=== PATIENT | male | born 1935 | race Caucasian/White ===

== ENCOUNTER 2020-10-25 09:35 | Inpatient (IN) | payer MEDICAID, SELFPAY ==
[2020-10-25] VITALS (9 sets, daily range): BP systolic 136–166; BP diastolic 58–80; PULSE 56–73; RESP 16–18; TEMP 36.5–37.1; O2SAT 92–96; BMI 22.7
--- NOTE | ~2020-10-25 | FL_ITS ---
EXAMINATION: XR FLUOROSCOPY WITH IMAGES CLINICAL INFORMATION: Hip fracture, left. COMPARISON: None. TECHNIQUE: Fluoroscopy performed by Dr. Timothy Bryant. Fluoroscopy time: 1.1 minutes DAP: 0.573 mGycm2 Images: 5 FINDINGS: Images demonstrate placement of an intramedullary adis and screw in the left hip. Please see operative report for details. FL/FL guidance in OR IMPRESSION: Fluoroscopy and spot films provided during left hip pin placement.
--- NOTE | ~2020-10-25 | XR_ITS ---
EXAMINATION: AP CHEST AND PELVIS WITH LEFT HIP CLINICAL INFORMATION: Fall COMPARISON: June 17, 2017 TECHNIQUE: AP supine film of the chest and AP pelvis and 2 views of the left hip FINDINGS: AP film of the chest does not demonstrate any evidence of acute parenchymal disease, pneumothorax, or pleural effusion. There are small lung volumes. Old healed left rib fractures present. Heart normal size. No evidence of pulmonary edema. AP film of the pelvis demonstrates patient be status post previous intramedullary adis and compression screw fixation for previous right hip fracture. There is now noted to be an intertrochanteric fracture of the proximal left femur with some medial angulation of the distal fracture fragment. No dislocation is evident. No acute fracture or diastases of the pelvis is appreciated. There is degenerative disc disease and facet arthropathy seen L4-S1. XR/XR hip LT w PEL1V IMPRESSION: No acute parenchymal disease within the chest. Intratrochanteric fracture of the proximal left femur with mild medial angulation distal fracture fragment.
--- NOTE | ~2020-10-25 | CT_ITS ---
EXAMINATION: CT HEAD/BRAIN WITHOUT CONTRAST CLINICAL INFORMATION: Fall COMPARISON: July 08, 2011 and August 18, 2012 TECHNIQUE: CT scanning from base of skull to vertex performed without IV contrast administration. This CT examination was performed using dose optimization techniques as appropriate, variously including the following: *Automated exposure control *Adjustment of mA and/or kV according to patient size (this includes techniques or standardized protocols for targeted exams where dose is matched to indication/reason for exam; i.e. extremities or head) *Use of iterative reconstruction technique DLP: 557.32 mGy-cm. FINDINGS: The ventricles, sulci, and cisterns appear prominent consistent with some degree of generalized atrophy.. No abnormal extra-axial fluid collection or intracranial hemorrhage is seen. No significant mass effect or midline structure shift is evident. 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 There is a mucous retention cyst seen within the left sphenoid sinus. Previous nasal bone fracture evident. There are prominent vascular calcifications seen involving the vertebral arteries and carotid arteries. CT/CT cervical spine wo con IMPRESSION: No acute intracranial abnormality appreciated. Generalized atrophy. 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 EXAMINATION: CT OF THE CERVICAL SPINE CLINICAL INFORMATION: Fall COMPARISON: None. TECHNIQUE: Thin helical images with sagittal and coronal reformats. This CT examination was performed using dose optimization techniques as appropriate, variously including the following: *Automated exposure control *Adjustment of mA and/or kV according to patient size (this includes techniques or standardized protocols for targeted exams where dose is matched to indication/reason for exam; i.e. extremities or head) *Use of iterative reconstruction technique DOSE: DLP 567 mGy-cm FINDINGS: There is motion artifact present on 2 separate series performed. No definite acute fracture is appreciated. No abnormal prevertebral soft tissue swelling is seen. Paraspinal muscle fat planes are maintained. There is degenerative disc space narrowing and marginal spurring seen C4-C7. IMPRESSION: No acute cervical spine fracture identified. Degenerative disc disease.
--- NOTE | ~2020-10-25 | XR_ITS ---
EXAMINATION: AP CHEST AND PELVIS WITH LEFT HIP CLINICAL INFORMATION: Fall COMPARISON: June 17, 2017 TECHNIQUE: AP supine film of the chest and AP pelvis and 2 views of the left hip FINDINGS: AP film of the chest does not demonstrate any evidence of acute parenchymal disease, pneumothorax, or pleural effusion. There are small lung volumes. Old healed left rib fractures present. Heart normal size. No evidence of pulmonary edema. AP film of the pelvis demonstrates patient be status post previous intramedullary adis and compression screw fixation for previous right hip fracture. There is now noted to be an intertrochanteric fracture of the proximal left femur with some medial angulation of the distal fracture fragment. No dislocation is evident. No acute fracture or diastases of the pelvis is appreciated. There is degenerative disc disease and facet arthropathy seen L4-S1. XR/XR chest 1V IMPRESSION: No acute parenchymal disease within the chest. Intratrochanteric fracture of the proximal left femur with mild medial angulation distal fracture fragment.
--- NOTE | 2020-10-25 09:43 | ECG_ITS ---
Test Reason : FALL Blood Pressure : / mmHG Vent. Rate : 063 BPM Atrial Rate : 063 BPM P-R Int : 200 ms QRS Dur : 098 ms QT Int : 410 ms P-R-T Axes : 063 037 085 degrees QTc Int : 419 ms Normal sinus rhythm Normal ECG When compared with ECG of 17-JUN-2017 11:34, Vent. rate has decreased BY 38 BPM Referred By: Jany Guevara Electronically Signed By:KENROY MORENO MD
--- NOTE | 2020-10-25 09:44 | ED.FALL ---
HPI - Fall General Chief Complaint: Extremity Injury, Lower Stated Complaint: FALL LEFT HIP PAIN Time Seen by Provider: 10/25/20 09:43 Source: patient and EMS Mode of arrival: EMS Limitations: altered mental status History of Present Illness complaint: fall Onset (ago): day(s) (last night) Fall from: standing Fall witnessed: no Place fall occurred: [facility] Loss of consciousness: none Prolonged down time: no Symptoms prior to fall: none Context: other (unknown) Location of injury: pelvis (L hip) Severity: moderate Quality: throbbing Associated symptoms (after fall): denies Related Data Home Medications Medication Instructions Recorded Confirmed acetaminophen [Tylenol] 650 mg PO Q4H PRN 10/25/20 10/25/20 ferrous sulfate 325 mg PO DAILY 10/25/20 10/25/20 insulin aspart U-100 [Novolog 6 unit SUBCUT BIDAC 10/25/20 10/25/20 U-100 Insulin aspart] insulin aspart U-100 [Novolog 12 unit SUBCUT DAILY PRN 10/25/20 10/25/20 U-100 Insulin aspart] insulin glargine [Lantus U-100 24 unit SUBCUT BEDTIME 10/25/20 10/25/20 Insulin] atdwxtei-oyp-xycsnbs sulfate 1 tab PO DAILY 10/25/20 10/25/20 [Multilex] nystatin 1 appl TOPICAL BID 10/25/20 10/25/20 sertraline 25 mg PO DAILY 10/25/20 10/25/20 Allergies Allergy/AdvReac Type Severity Reaction Status Date / Time No Known Allergies Allergy Unverified 12/23/19 15:10 Review of Systems Review of Systems: ROS unable to be obtained due to cognitive impairment [facility] Past Medical History Attestation statement: The following information was validated with the patient. Medical History Anemia Dementia Depression Diabetes Falls HTN (hypertension) Social History Social History Housing: [facility] Patient Tobacco Use Status: Tobacco use Unknown Use of substances other than those prescribed or required for medical reasons: Unknown Advance Directives: No Advance Directives Information Provided: Yes Physical Exam Vital Signs: Vital Signs: Last Vital Signs Temp 97.9 F 10/25/20 14:32 Pulse 57 10/25/20 14:32 Resp 16 10/25/20 14:32 BP 151/60 H 10/25/20 14:32 Pulse Ox 93 10/25/20 14:32 Body Mass Index 22.7 Appearance: Alert. Oriented X2. No acute distress. Eyes: Pupils equal, round and reactive to light. ENT: Pharynx normal. Neck: Normal inspection. Neck supple. CVS: Normal heart rate and rhythm. Pulses normal. Respiratory: No respiratory distress. Breath sounds normal. Abdomen: Soft and nontender. Skin: Skin warm and dry. Normal skin color. Normal skin turgor. Extremities: No lower extremity edema. L leg shortened and ext rotated, distal NV intact, swelling to upper thigh but compartments are soft and compressibe Neuro: Oriented X 2. No motor deficit. No sensory deficit. Course Course Course Narrative: I cannot reach any family member who is DNR?DNI/ do not transport and he has severe dementia and I don't believe he can consent to surgery - staff note he ambulates at bedside, SW involved at this time family member at bedside medicine to admit, orthopedics notified 1153am MDM - Fall MDM Narrative Medical decision making narrative: 84 yo male unwitnessed fall yesterday - L hip shortened and externally rotated, no other trauma given dementia and age will need labs, CT head/cspine to r/o trauma, EKG, IV morphine for pain, anticipate fracture. Lab Data Result diagrams: 10/25/20 09:55 10/25/20 09:55 Labs: Lab Results 10/25/20 10/25/20 10/25/20 Range/Units 09:55 09:55 09:55 WBC 10.0 (4.8-10.8) X10*3/uL RBC 3.21 L (4.60-5.80) X10*6/uL Hgb 9.5 L (14.0-18.0) g/dl Hct 29.8 L (42-52) % MCV 92.8 (80-98) fL MCH 29.6 (27.0-33.0) pg MCHC 31.9 (31.0-36.0) g/dl RDW 12.5 (11.0-16.0) % Plt Count 174 (160-400) X10*3/uL MPV 9.3 L (9.4-12.4) fL Immature Gran % (Auto) 0.6 H (0.0-0.4) % Neut % (Auto) 76.9 H (45-73) % Lymph % (Auto) 12.3 L (20-40) % Stephens % (Auto) 6.9 (2-11) % Eos % (Auto) 3.1 (0-4) % Baso % (Auto) 0.2 (0-2) % Lymph # (Auto) 1.2 (1.2-4.9) X10*3/uL Stephens # (Auto) 0.7 (0.1-1.2) X10*3/uL Eos # (Auto) 0.3 (0.0-0.4) X10*3/uL Baso # (Auto) 0.0 (0.0-0.2) X10*3/uL Abs Immat Gran (auto) 0.06 H (0.00-0.03) X10*3/uL Absolute Neuts (auto) 7.7 (2.0-8.3) X10*3/uL Absolute Nucleated RBC 0.000 (0.0-0.012) X10*3/uL Nucleated RBC % (auto) 0.0 (0.0-0.2) /100WBC Sodium 137 (135-145) mmol/L Potassium 5.0 (3.3-5.1) mmol/L Chloride 108 (96-108) mmol/L Carbon Dioxide 23 (22-29) mmol/L Anion Gap 11 L (12-20) BUN 62 H (9-16) mg/dL Creatinine 1.65 H (0.5-1.4) mg/dL Estim Creat Clear Calc 34.8 Estimated GFR 40 Random Glucose 326 H (60-115) mg/dL Calcium 8.3 L (8.4-10.2) mg/dL Magnesium 2.1 (1.6-2.6) mg/dL Total Bilirubin 0.3 (0.0-1.0) mg/dL Direct Bilirubin < 0.2 (0.0-0.5) mg/dL AST 13 (5-37) U/L ALT 15 (0-40) U/L Alkaline Phosphatase 95 (39-117) U/L Troponin I High Sens (<3.5-35.0) ng/L Total Protein 7.2 (6.5-8.0) g/dL Albumin 3.4 L (3.5-5.0) g/dL Lipase 9 (8-78) U/L COVID-19 (MACI) Negative (Negative) COVID-19 Clin Com See Note Blood Type Antibody Screen 10/25/20 10/25/20 Range/Units 09:55 11:41 WBC (4.8-10.8) X10*3/uL RBC (4.60-5.80) X10*6/uL Hgb (14.0-18.0) g/dl Hct (42-52) % MCV (80-98) fL MCH (27.0-33.0) pg MCHC (31.0-36.0) g/dl RDW (11.0-16.0) % Plt Count (160-400) X10*3/uL MPV (9.4-12.4) fL Immature Gran % (Auto) (0.0-0.4) % Neut % (Auto) (45-73) % Lymph % (Auto) (20-40) % Stephens % (Auto) (2-11) % Eos % (Auto) (0-4) % Baso % (Auto) (0-2) % Lymph # (Auto) (1.2-4.9) X10*3/uL Stephens # (Auto) (0.1-1.2) X10*3/uL Eos # (Auto) (0.0-0.4) X10*3/uL Baso # (Auto) (0.0-0.2) X10*3/uL Abs Immat Gran (auto) (0.00-0.03) X10*3/uL Absolute Neuts (auto) (2.0-8.3) X10*3/uL Absolute Nucleated RBC (0.0-0.012) X10*3/uL Nucleated RBC % (auto) (0.0-0.2) /100WBC Sodium (135-145) mmol/L Potassium (3.3-5.1) mmol/L Chloride (96-108) mmol/L Carbon Dioxide (22-29) mmol/L Anion Gap (12-20) BUN (9-16) mg/dL Creatinine (0.5-1.4) mg/dL Estim Creat Clear Calc Estimated GFR Random Glucose (60-115) mg/dL Calcium (8.4-10.2) mg/dL Magnesium (1.6-2.6) mg/dL Total Bilirubin (0.0-1.0) mg/dL Direct Bilirubin (0.0-0.5) mg/dL AST (5-37) U/L ALT (0-40) U/L Alkaline Phosphatase (39-117) U/L Troponin I High Sens 8.0 (<3.5-35.0) ng/L Total Protein (6.5-8.0) g/dL Albumin (3.5-5.0) g/dL Lipase (8-78) U/L COVID-19 (MACI) (Negative) COVID-19 Clin Com Blood Type O Positive Antibody Screen NEGATIVE ECG Data Attestation: I personally reviewed and interpreted this ECG as follows: ECG interpretation date: 10/25/20 ECG interpretation time: 09:56 Interpretation: Rate: 63 Rhythm: NSR Winters: normal Normal P waves. Normal DENILSON. Normal QRS complex. ST T wave : inverted aVL, no PREM qTC: normal prior studies: no acute ischemia The study has been interpreted contemporaneously by me. . Discharge Plan Discharge Clinical Impression: Fracture of femur Qualifiers: Encounter type: initial encounter Femur location: intertrochanteric Fracture type: closed Fracture alignment: displaced Laterality: left Qualified Code(s): S72.142A - Displaced intertrochanteric fracture of left femur, initial encounter for closed fracture Patient Disposition: Admitted As Inpatient
[2020-10-25] MEDS: ondansetron HCL 4 MG/2 ML VIAL IVPUSH (09:54)
[2020-10-25] MEDS: Morphine Sulfate 4 MG/ML CARTRIDGE 2 MG IVPUSH (09:54)
[2020-10-25 10:00] LABS: MANUAL DIFF FLAG NO
[2020-10-25 10:01] LABS: Basophils Percent Auto 0.2 % (0-2); Eosinophils Absolute Auto 0.3 X10*3/uL (0.0-0.4); Eosinophils Percent Auto 3.1 % (0-4); Hematocrit 29.8 % (42-52); Hemoglobin 9.5 g/dl (14.0-18.0); Imm Gran Abs Auto 0.06 X10*3/uL (0.00-0.03); Imm Gran Pct Auto 0.6 % (0.0-0.4); Lymphocytes Absolute Auto 1.2 X10*3/uL (1.2-4.9); Lymphocytes Percent Auto 12.3 % (20-40); Mean Corpuscular HGB Conc 31.9 g/dl (31.0-36.0); Mean Corpuscular Hemoglobin 29.6 pg (27.0-33.0); Mean Corpuscular Volume 92.8 fL (80-98); Mean Platelet Volume 9.3 fL (9.4-12.4); Monocytes Absolute Auto 0.7 X10*3/uL (0.1-1.2); Monocytes Percent Auto 6.9 % (2-11); Neutrophils Absolute Auto 7.7 X10*3/uL (2.0-8.3); Neutrophils Percent Auto 76.9 % (45-73); Platelet Count 174 X10*3/uL (160-400); Red Blood Count 3.21 X10*6/uL (4.60-5.80); Red Cell Distribution Width 12.5 % (11.0-16.0)
[2020-10-25 10:19] LABS: COVID-19 Test Negative (Negative); IDNOW Serial# 9DD0AD1C
--- NOTE | 2020-10-25 10:22 | PHA.MEDREC ---
Pharmacy Consult ? Medication Reconciliation Pharmacy has completed the medication reconciliation.
[2020-10-25 10:33] LABS: Alanine Aminotransferase 15 U/L (0-40); Albumin Level 3.4 g/dL (3.5-5.0); Alkaline Phosphatase 95 U/L (39-117); Anion Gap 11 (12-20); Aspartate Amino Transferase 13 U/L (5-37); Bilirubin Direct < 0.2 mg/dL (0.0-0.5); Bilirubin Total 0.3 mg/dL (0.0-1.0); Blood Urea Nitrogen 62 mg/dL (9-16); Calcium 8.3 mg/dL (8.4-10.2); Carbon Dioxide 23 mmol/L (22-29); Chloride 108 mmol/L (96-108); Creatinine Clr Calc Pharmacy 34.8; Estimated Glomerular Filt Rate 40; Glucose Random 326 mg/dL (60-115); Lipase 9 U/L (8-78); Magnesium 2.1 mg/dL (1.6-2.6); Sodium 137 mmol/L (135-145); Total Protein 7.2 g/dL (6.5-8.0)
--- NOTE | 2020-10-25 11:04 | PC.NURSE ---
received report from lindsey cervantes
--- NOTE | 2020-10-25 11:29 | PC.NURSE ---
pt is resting in the stretcher alert but confused at baseline so unable to get clear answer if pt is having any pain at this time, pt does wince if he is moved or the left leg moved. left leg rated inn, vs stable at this time
--- NOTE | 2020-10-25 11:44 | PC.NURSE ---
CALLED [facility] AND SPOKE TO ZAIDA RN IN REGARDS TO THE PT'S CONTACTS, PT'S SISTER HAS AND THE NEPHEW PIOTR TURNED HIS CELL PHONE OFF BECAUSE HE WOULD LIKE TO BE OFF THE GRID, [place] ADDRESS IS [address] [place] [address]. ACCORDING TO ZAIDA THEY WILL SEND THERE CASE MANAGEMENT TO [facility] [place] TO ASK HIM TO COME TO THE [place] ED. ZAIDA STATES THAT [facility] IS HIS OWN HEALTH CARE PROXY, PT DOES HAVE SOME CONFUSION AT BASELINE. DR SPRINGER AWARE OF THIS PHONE CALL
--- NOTE | 2020-10-25 14:19 | P.HPOP_ITS ---
History of Present Illness History of Present Illness Date of Service: 10/25/20 Chief complaint: FALL LEFT HIP PAIN Narrative: Abdi Jose is a 84 year old male who presents to the ED today for evaluation of left hip pain after sustaining an unwitnessed fall two days ago. After the fall the patient reports that he was unable to ambulate after the fall. He is a poor historian and is a resident at [facility] in [place]. His health care proxy and nephew Miles accompanies the patient at bedside but is unable to provide additional information about the patients health history or de tails surrounding the events of the patient's fall. Review of Systems Review of Systems: Yes all other systems are reviewed and are negative PMFSH Past Medical History Medical History Anemia Dementia Depression Diabetes Falls HTN (hypertension) Social History Social History (Updated 10/25/20 @ 09:54 by Jany Guevara DO) Housing: Care Home Patient Tobacco Use Status: Tobacco use Unknown Use of substances other than those prescribed or required for medical reasons: Unknown Advance Directives: No Advance Directives Information Provided: Yes Meds Allergies Allergy/AdvReac Type Severity Reaction Status Date / Time No Known Allergies Allergy Unverified 12/23/19 15:10 Active Medications: Current Medications Generic Name Dose Route Start Last Admin Trade Name Freq PRN Reason Stop Dose Admin Pharmacy Consult 1 each 10/25/20 09:43 Consult Rx Perform Med Rec MISCELLANE ONCE PRN Consult order Home Medications Medication Instructions Recorded Confirmed Last Taken Type acetaminophen [Tylenol] 650 mg PO Q4H PRN 10/25/20 10/25/20 Unknown History ferrous sulfate 325 mg PO DAILY 10/25/20 10/25/20 Unknown History insulin aspart U-100 [Novolog 6 unit SUBCUT BIDAC 10/25/20 10/25/20 Unknown History U-100 Insulin aspart] insulin aspart U-100 [Novolog 12 unit SUBCUT DAILY PRN 10/25/20 10/25/20 Unknown History U-100 Insulin aspart] insulin glargine [Lantus U-100 24 unit SUBCUT BEDTIME 10/25/20 10/25/20 Unknown History Insulin] oixcarwl-cgg-kjaujwj sulfate 1 tab PO DAILY 10/25/20 10/25/20 Unknown History [Multilex] nystatin 1 appl TOPICAL BID 10/25/20 10/25/20 Unknown History sertraline 25 mg PO DAILY 10/25/20 10/25/20 Unknown History Physical Exam Vital Signs: Vital Signs: Last Vital Signs Temp 98.5 F 10/25/20 12:26 Pulse 56 10/25/20 12:26 Resp 16 10/25/20 12:26 BP 154/68 H 10/25/20 12:26 Pulse Ox 95 10/25/20 12:26 Body Mass Index 22.7 Const: General: cooperative and no acute distress HENMT: Head: Yes normal to inspection, Yes normocephalic and Yes atraumatic Eyes: General: appearance normal, both eyes and all related structures Neck: Neck: Yes normal visual inspection and Yes no lymphadenopathy Resp: Effort & Inspection: normal respiratory effort and able to speak in complete sentences Cardio: Rate: regular rate Peripheral pulses: Peripheral pulses 2+ throughout GI: Inspection: Yes normal to inspection Palpation (GI): Soft to palpation Skin: General skin exam: no rashes or lesions noted Lesions: no lesions Rashes: no rashes Extrem: Other: Left lower extremity is shortened and externally rotated. Skin is intact with no abrasions or lesions. Pain with log roll. Unable to perform a straight leg raise. NVI. Results Labs Result Diagrams: 10/25/20 09:55 10/25/20 09:55 Labs: Abnormal lab results 10/25/20 10/25/20 Range/Units 09:55 09:55 RBC 3.21 L (4.60-5.80) X10*6/uL Hgb 9.5 L (14.0-18.0) g/dl Hct 29.8 L (42-52) % MPV 9.3 L (9.4-12.4) fL Immature Gran % (Auto) 0.6 H (0.0-0.4) % Neut % (Auto) 76.9 H (45-73) % Lymph % (Auto) 12.3 L (20-40) % Abs Immat Gran (auto) 0.06 H (0.00-0.03) X10*3/uL Anion Gap 11 L (12-20) BUN 62 H (9-16) mg/dL Creatinine 1.65 H (0.5-1.4) mg/dL Random Glucose 326 H (60-115) mg/dL Calcium 8.3 L (8.4-10.2) mg/dL Albumin 3.4 L (3.5-5.0) g/dL H & H 10/25/20 Range/Units 09:55 Hgb 9.5 L (14.0-18.0) g/dl Hct 29.8 L (42-52) % All other labs normal. Assessment and Plan (1) Intertrochanteric fracture of left femur: Status: Acute I discussed the case with Dr. Bryant and Dr. Reece and explained the extent of the injury to the patient as well has his HCP/Nephew Miles. We discussed options available which include surgical intervention. I explained the procedure in detail along with the length of recovery and rehab course. I explained the risk, benefits and alternatives. Risk including, but not limited to infection, blood clots, bleeding, non union or malunion and nerve/tissue damage to surrounding areas. I answered all their questions and with their understanding they have consented to move forward with Operative Fixation of the left hip . The patient will be T&S, med clearance obtained and NPO after midnight. Quality Stroke Does the patient have a stroke diagnosis?: No VTE Prior VTE?: No VTE Risk Level:: Surgical - high VTE Device Contraindication: N/A - Device Ordered VTE Drug Contraindication: N/A - Med Ordered Procedures Date of Service Date of Service: 10/25/20
--- NOTE | 2020-10-25 14:43 | PC.NURSE ---
pt resting in the stretcher in no apparent distress at this time, magy the nephew at bedside. pt continuous on awaiting a room assignment
--- NOTE | 2020-10-25 15:17 | PM.IMHP ---
History of Present Illness Date of Service: 10/25/20 Chief Complaint: fall 84M with dementia, poor historia, [place], presented for mechanical fall, found to have left femur fracture. patient does not recall event. does currently have left hip pain, but only on movement, was previously mobile, denies chest pain, sob, fever, chills Review of Systems Review of Systems: Constitutional: Denies fever, denies Chills Eyes: denies blurry vision ENT: denies sore throat CVS: denies chest pain Respiratory: Denies dyspnea GI: no abdominal pain : denies dysuria MSK: denies neck pain Skin: denies rash Neuro: denies specific motor weakness Psych: denies suicidal ideation Endocrine: denies heat/cold intoleratnce Hematologic: denies easy bleeding Allergy: denies hives PMFSH Medical History Anemia Dementia Depression Diabetes Falls HTN (hypertension) Family history: reviewed and not pertinent Social History Housing: Correction Patient Tobacco Use Status: Tobacco use Unknown Use of substances other than those prescribed or required for medical reasons: Unknown Advance Directives: No Advance Directives Information Provided: Yes Meds Allergies Allergy/AdvReac Type Severity Reaction Status Date / Time No Known Allergies Allergy Unverified 12/23/19 15:10 Active Medications: Current Medications Generic Name Dose Route Start Last Admin Trade Name Freq PRN Reason Stop Dose Admin Acetaminophen 650 mg 10/25/20 15:11 Acetaminophen 325 Mg Tablet PO Q4H PRN Pain Insulin Glargine 10 unit 10/25/20 21:00 Insulin Glargine,Hum.Rec.Anlog 100 Unit/Ml 10 Ml Vial SUBCUT BEDTIME [facility] Insulin Human Lispro 0 unit 10/25/20 16:30 Insulin Lispro 100 Unit/Ml 3 Ml Vial SUBCUT QIDACHS [facility] Protocol Pharmacy Consult 1 each 10/25/20 09:43 Consult Rx Perform Med Rec MISCELLANE ONCE PRN Consult order Sertraline HCl 25 mg 10/26/20 09:00 Sertraline Hcl 25 Mg Tablet PO DAILY [facility] Sodium Chloride 3 ml 10/25/20 16:00 0.9 % Sodium Chloride Flush 3 Ml [facility]ringe [facility] Home Medications Medication Instructions Recorded Confirmed Last Taken Type acetaminophen [Tylenol] 650 mg PO Q4H PRN 10/25/20 10/25/20 Unknown History ferrous sulfate 325 mg PO DAILY 10/25/20 10/25/20 Unknown History insulin aspart U-100 [Novolog 6 unit SUBCUT BIDAC 10/25/20 10/25/20 Unknown History U-100 Insulin aspart] insulin aspart U-100 [Novolog 12 unit SUBCUT DAILY PRN 10/25/20 10/25/20 Unknown History U-100 Insulin aspart] insulin glargine [Lantus U-100 24 unit SUBCUT BEDTIME 10/25/20 10/25/20 Unknown History Insulin] zudwimer-tbn-oucctce sulfate 1 tab PO DAILY 10/25/20 10/25/20 Unknown History [Multilex] nystatin 1 appl TOPICAL BID 10/25/20 10/25/20 Unknown History sertraline 25 mg PO DAILY 10/25/20 10/25/20 Unknown History Physical Exam Vital Signs and Narrative: Vital Signs: Last Vital Signs Temp 97.9 F 10/25/20 14:32 Pulse 57 10/25/20 14:32 Resp 16 10/25/20 14:32 BP 151/60 H 10/25/20 14:32 Pulse Ox 93 10/25/20 14:32 Body Mass Index 22.7 General: no acute distress HEENT: atraumatic Neck: normal to visual inspection CVS: S1, S2, RRR Resp: CTA bilateral Chest: non tender GI: soft, non tender, non distended : no CVA tenderness Skin: no rashes Extremities: no edema Neuro: Oriented X1, grossly intact Psych: cooperative Results Labs CBC and Chem 7: 10/25/20 09:55 10/25/20 09:55 Labs: Laboratory Results - last 24 hr 10/25/20 10/25/20 10/25/20 09:55 09:55 09:55 MCV 92.8 MCH 29.6 MCHC 31.9 RDW 12.5 Plt Count 174 MPV 9.3 L Immature Gran % (Auto) 0.6 H Neut % (Auto) 76.9 H Lymph % (Auto) 12.3 L [place] % (Auto) 6.9 Eos % (Auto) 3.1 Baso % (Auto) 0.2 Lymph # (Auto) 1.2 [place] # (Auto) 0.7 Eos # (Auto) 0.3 Baso # (Auto) 0.0 Abs Immat Gran (auto) 0.06 H Absolute Neuts (auto) 7.7 Absolute Nucleated RBC 0.000 Nucleated RBC % (auto) 0.0 Anion Gap 11 L Estim Creat Clear Calc 34.8 Estimated GFR 40 Random Glucose 326 H Calcium 8.3 L Magnesium 2.1 Total Bilirubin 0.3 Direct Bilirubin < 0.2 AST 13 ALT 15 Alkaline Phosphatase 95 Troponin I High Sens Total Protein 7.2 Albumin 3.4 L Lipase 9 COVID-19 (MACI) Negative COVID-19 Clin Com See Note Blood Type Antibody Screen 10/25/20 10/25/20 09:55 11:41 MCV MCH MCHC RDW Plt Count MPV Immature Gran % (Auto) Neut % (Auto) Lymph % (Auto) [place] % (Auto) Eos % (Auto) Baso % (Auto) Lymph # (Auto) [place] # (Auto) Eos # (Auto) Baso # (Auto) Abs Immat Gran (auto) Absolute Neuts (auto) Absolute Nucleated RBC Nucleated RBC % (auto) Anion Gap Estim Creat Clear Calc Estimated GFR Random Glucose Calcium Magnesium Total Bilirubin Direct Bilirubin AST ALT Alkaline Phosphatase Troponin I High Sens 8.0 Total Protein Albumin Lipase COVID-19 (MACI) COVID-19 Clin Com Blood Type O Positive Antibody Screen NEGATIVE Imaging Radiologist's Impressions: Impressions Cervical Spine CT 10/25/20 09:43 IMPRESSION: No acute intracranial abnormality appreciated. Generalized atrophy. 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 EXAMINATION: CT OF THE CERVICAL SPINE CLINICAL INFORMATION: Fall COMPARISON: None. TECHNIQUE: Thin helical images with sagittal and coronal reformats. This CT examination was performed using dose optimization techniques as appropriate, variously including the following: *Automated exposure control *Adjustment of mA and/or kV according to patient size (this includes techniques or standardized protocols for targeted exams where dose is matched to indication/reason for exam; i.e. extremities or head) *Use of iterative reconstruction technique DOSE: DLP 567 mGy-cm FINDINGS: There is motion artifact present on 2 separate series performed. No definite acute fracture is appreciated. No abnormal prevertebral soft tissue swelling is seen. Paraspinal muscle fat planes are maintained. There is degenerative disc space narrowing and marginal spurring seen C4-C7. IMPRESSION: No acute cervical spine fracture identified. Degenerative disc disease. Head CT 10/25/20 09:43 IMPRESSION: No acute intracranial abnormality appreciated. Generalized atrophy. 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 EXAMINATION: CT OF THE CERVICAL SPINE CLINICAL INFORMATION: Fall COMPARISON: None. TECHNIQUE: Thin helical images with sagittal and coronal reformats. This CT examination was performed using dose optimization techniques as appropriate, variously including the following: *Automated exposure control *Adjustment of mA and/or kV according to patient size (this includes techniques or standardized protocols for targeted exams where dose is matched to indication/reason for exam; i.e. extremities or head) *Use of iterative reconstruction technique DOSE: DLP 567 mGy-cm FINDINGS: There is motion artifact present on 2 separate series performed. No definite acute fracture is appreciated. No abnormal prevertebral soft tissue swelling is seen. Paraspinal muscle fat planes are maintained. There is degenerative disc space narrowing and marginal spurring seen C4-C7. IMPRESSION: No acute cervical spine fracture identified. Degenerative disc disease. Chest X-Ray 10/25/20 09:44 IMPRESSION: No acute parenchymal disease within the chest. Intratrochanteric fracture of the proximal left femur with mild medial angulation distal fracture fragment. Hip/Pelvis X-Ray 10/25/20 09:44 IMPRESSION: No acute parenchymal disease within the chest. Intratrochanteric fracture of the proximal left femur with mild medial angulation distal fracture fragment. Assessment and Plan (1) Intertrochanteric fracture of left femur: Status: Acute 84M presented with hip fracture left hip fracture npo after midnight moderate risk, benefits outweigh risks DM insulin dementia monitor for delerium Quality Stroke Does the patient have a stroke diagnosis?: No VTE Prior VTE?: No VTE Risk Level:: Surgical - high VTE Device Contraindication: N/A - Device Ordered VTE Drug Contraindication: N/A - Med Ordered
[2020-10-25 17:26] LABS: Glucose, Whole Blood 176 mg/dL (60-115)
[2020-10-25] MEDS: Insulin Lispro 100 UNIT/ML 3 ML VIAL SUBCUT ×2 (18:39→20:35)
[2020-10-25] MEDS: 0.9 % Sodium Chloride Flush 3 ML SYRINGE IVFLUSH ×2 (18:41→22:13)
--- NOTE | 2020-10-25 18:41 | PC.NURSE ---
pt just finished eating his dinner, insulin 2unites given late due to waiting for the dinner try
[2020-10-25 19:23] LABS: Glucose Urine UA NEG (NEG); Leukocyte Esterase Urine 3+ (NEG); Nitrite Urine NEG (NEG); Specific Gravity - Urine 1.015 (1.005-1.025); UACC Culture Trigger YES; Urine Blood TRACE (NEG); Urine Ketones NEG (NEG); Urine Protein 1+ MG/DL (NEG-TRACE)
[2020-10-25 19:26] LABS: Appearance Urine CLOUDY; Color Urine YELLOW
[2020-10-25 19:30] LABS: Bacteria Urine 3+ /LPF; Squamous Epithelial Cell Urine TRACE /LPF
--- NOTE | 2020-10-25 20:26 | PC.NURSE ---
PT PULLED HIS [place] OUT, SOME BLEEDING AROUND THE PENIS, PT CLEANED UP AND WILL ATTEMPT TO APPLY CONDOM CATH INSTEAD
[2020-10-25 20:30] LABS: Glucose, Whole Blood 304 mg/dL (60-115)
[2020-10-25] MEDS: Insulin Glargine,Hum.rec.anlog 100 UNIT/ML 10 ML VIAL 10 UNIT SUBCUT (20:36)
--- NOTE | 2020-10-25 20:53 | PC.NURSE ---
called med/surg to give report awaiting a call back
--- NOTE | 2020-10-25 21:16 | PC.NURSE ---
report given to med/surgical corsetier
[2020-10-25] MEDS: Acetaminophen 325 MG TABLET 650 MG PO (22:12)
[2020-10-26] VITALS (12 sets, daily range): BP systolic 103–135; BP diastolic 43–59; PULSE 68–110; RESP 14–18; TEMP 36.2–37.4; O2SAT 94–100
[2020-10-26] MEDS: HYDROmorphone HCl 0.5 MG/0.5 ML SYRINGE 0.25 MG IVPUSH (00:34)
[2020-10-26 07:20] LABS: Hematocrit 30.2 % (42-52); Hemoglobin 9.6 g/dl (14.0-18.0); Mean Corpuscular HGB Conc 31.8 g/dl (31.0-36.0); Mean Corpuscular Hemoglobin 29.9 pg (27.0-33.0); Mean Corpuscular Volume 94.1 fL (80-98); Platelet Count 148 X10*3/uL (160-400); Red Blood Count 3.21 X10*6/uL (4.60-5.80); Red Cell Distribution Width 12.8 % (11.0-16.0); White Blood Count 14.4 X10*3/uL (4.8-10.8)
[2020-10-26 07:31] LABS: Glucose, Whole Blood 222 mg/dL (60-115)
[2020-10-26] MEDS: Sertraline HCL 25 MG TABLET PO (07:41)
[2020-10-26] MEDS: Insulin Lispro 100 UNIT/ML 3 ML VIAL SUBCUT ×3 (07:41→21:16)
[2020-10-26] MEDS: 0.9 % Sodium Chloride Flush 3 ML SYRINGE IVFLUSH ×4 (07:41→21:17)
--- NOTE | 2020-10-26 07:42 | MHC.SHP ---
Pre-Procedural Eval Section A Date of Service: 10/26/20 The patient is an INPATIENT: Yes Section B Chief Complaint: Hip Fracture Allergies: Allergies Allergy/AdvReac Type Severity Reaction Status Date / Time No Known Allergies Allergy Unverified 12/23/19 15:10 Plan I have reviewed the history and physical and performed a pertinent physical examination on my patient. No changes have occurred unless specified.
[2020-10-26 08:01] LABS: Anion Gap 15 (12-20); Blood Urea Nitrogen 60 mg/dL (9-16); Calcium 8.6 mg/dL (8.4-10.2); Carbon Dioxide 22 mmol/L (22-29); Chloride 109 mmol/L (96-108); Creatinine Clr Calc Pharmacy 29.8; Estimated Glomerular Filt Rate 33; Glucose Fasting 229 mg/dL (60-99); Potassium 4.9 mmol/L (3.3-5.1); Sodium 141 mmol/L (135-145)
--- NOTE | 2020-10-26 09:40 | HO.PM.IMPN ---
Subjective Subjective Date of Service: 10/26/20 Interval History: pain on movement only Cardiovascular Cardiovascular: Reports no additional cardiovascular complaints Respiratory Respiratory: Reports no additional respiratory complaints Physical Exam Vital Signs: Vital Signs: Last Vital Signs Temp 98.6 F 10/26/20 07:30 Pulse 90 10/26/20 07:30 Resp 17 10/26/20 07:30 BP 134/59 L 10/26/20 07:30 Pulse Ox 95 10/26/20 07:30 Body Mass Index 22.7 General: AO X 1, no acute distress Resp: CTA bilateral CVS: S1,S2,RRR GI: soft, non tender, non distended Neuro: motor grossly intact Psych: impaired insight Objective Data Current Medications Generic Name Dose Route Start Last Admin Trade Name Freq PRN Reason Stop Dose Admin Acetaminophen 650 mg 10/25/20 15:11 10/25/20 22:12 Acetaminophen 325 Mg Tablet PO 650 mg Q4H PRN Administration Pain Insulin Glargine 10 unit 10/25/20 21:00 10/25/20 20:36 Insulin Glargine,Hum.Rec.Anlog 100 Unit/Ml 10 Ml Vial SUBCUT 10 unit BEDTIME AISHWARYA Administration Insulin Human Lispro 0 unit 10/25/20 16:30 10/26/20 07:41 Insulin Lispro 100 Unit/Ml 3 Ml Vial SUBCUT 4 unit QIDACHS [facility] Administration Protocol Pharmacy Consult 1 each 10/25/20 09:43 Consult Rx Perform Med Rec MISCELLANE ONCE PRN Consult order Sertraline HCl 25 mg 10/26/20 09:00 10/26/20 07:41 Sertraline Hcl 25 Mg Tablet PO 25 mg DAILY AISHWARYA Administration Sodium Chloride 3 ml 10/25/20 16:00 10/26/20 07:41 0.9 % Sodium Chloride Flush 3 Ml Syringe IVFLUSH 3 ml QSHIFT [facility] Administration Labs CBC & Chem 7: 10/26/20 06:43 10/26/20 06:43 Labs: Laboratory Results - last 24 hr 10/25/20 10/25/20 10/25/20 09:55 09:55 09:55 WBC 10.0 RBC 3.21 L Hgb 9.5 L Hct 29.8 L MCV 92.8 MCH 29.6 MCHC 31.9 RDW 12.5 Plt Count 174 MPV 9.3 L Immature Gran % (Auto) 0.6 H Neut % (Auto) 76.9 H Lymph % (Auto) 12.3 L [place] % (Auto) 6.9 Eos % (Auto) 3.1 Baso % (Auto) 0.2 Lymph # (Auto) 1.2 [place] # (Auto) 0.7 Eos # (Auto) 0.3 Baso # (Auto) 0.0 Abs Immat Gran (auto) 0.06 H Absolute Neuts (auto) 7.7 Absolute Nucleated RBC 0.000 Nucleated RBC % (auto) 0.0 Sodium 137 Potassium 5.0 Chloride 108 Carbon Dioxide 23 Anion Gap 11 L BUN 62 H Creatinine 1.65 H Estim Creat Clear Calc 34.8 Estimated GFR 40 POC Glucose Random Glucose 326 H Fasting Glucose Calcium 8.3 L Magnesium 2.1 Total Bilirubin 0.3 Direct Bilirubin < 0.2 AST 13 ALT 15 Alkaline Phosphatase 95 Troponin I High Sens Total Protein 7.2 Albumin 3.4 L Lipase 9 Urine Color Urine Appearance Urine pH Ur Specific [place] Urine Protein Urine Glucose (UA) Urine Ketones Urine Blood Urine Nitrite Ur Leukocyte Esterase Urine RBC Urine WBC Ur Squamous Epith Cells Urine Bacteria COVID-19 (MACI) Negative COVID-19 Clin Com See Note Blood Type Antibody Screen 10/25/20 10/25/20 10/25/20 09:55 11:41 17:22 WBC RBC Hgb Hct MCV MCH MCHC RDW Plt Count MPV Immature Gran % (Auto) Neut % (Auto) Lymph % (Auto) [place] % (Auto) Eos % (Auto) Baso % (Auto) Lymph # (Auto) [place] # (Auto) Eos # (Auto) Baso # (Auto) Abs Immat Gran (auto) Absolute Neuts (auto) Absolute Nucleated RBC Nucleated RBC % (auto) Sodium Potassium Chloride Carbon Dioxide Anion Gap BUN Creatinine Estim Creat Clear Calc Estimated GFR POC Glucose 176 H Random Glucose Fasting Glucose Calcium Magnesium Total Bilirubin Direct Bilirubin AST ALT Alkaline Phosphatase Troponin I High Sens 8.0 Total Protein Albumin Lipase Urine Color Urine Appearance Urine pH Ur Specific [place] Urine Protein Urine Glucose (UA) Urine Ketones Urine Blood Urine Nitrite Ur Leukocyte Esterase Urine RBC Urine WBC Ur Squamous Epith Cells Urine Bacteria COVID-19 (MACI) COVID-[employer] Clin Com Blood Type O Positive Antibody Screen NEGATIVE 10/25/20 10/25/20 10/26/20 19:13 20:16 06:43 WBC 14.4 H RBC 3.21 L Hgb 9.6 L Hct 30.2 L MCV 94.1 MCH 29.9 MCHC 31.8 RDW 12.8 Plt Count 148 L MPV 10.0 Immature Gran % (Auto) Neut % (Auto) Lymph % (Auto) [place] % (Auto) Eos % (Auto) Baso % (Auto) Lymph # (Auto) [place] # (Auto) Eos # (Auto) Baso # (Auto) Abs Immat Gran (auto) Absolute Neuts (auto) Absolute Nucleated RBC 0.000 Nucleated RBC % (auto) 0.0 Sodium Potassium Chloride Carbon Dioxide Anion Gap BUN Creatinine Estim Creat Clear Calc Estimated GFR POC Glucose 304 H Random Glucose Fasting Glucose Calcium Magnesium Total Bilirubin Direct Bilirubin AST ALT Alkaline Phosphatase Troponin I High Sens Total Protein Albumin Lipase Urine Color YELLOW Urine Appearance CLOUDY Urine pH 6.0 Ur Specific [place] 1.015 Urine Protein 1+ H Urine Glucose (UA) NEG Urine Ketones NEG Urine Blood TRACE Urine Nitrite NEG Ur Leukocyte Esterase 3+ H Urine RBC 1-4 Urine WBC 76-150 H Ur Squamous Epith Cells TRACE Urine Bacteria 3+ COVID-19 ([facility]I) COVID-[employer] Blood Type Antibody Screen 10/26/20 10/26/20 06:43 07:28 WBC RBC Hgb Hct MCV MCH MCHC RDW Plt Count MPV Immature Gran % (Auto) Neut % (Auto) Lymph % (Auto) [place] % (Auto) Eos % (Auto) Baso % (Auto) Lymph # (Auto) [place] # (Auto) Eos # (Auto) Baso # (Auto) Abs Immat Gran (auto) Absolute Neuts (auto) Absolute Nucleated RBC Nucleated RBC % (auto) Sodium 141 Potassium 4.9 Chloride 109 H Carbon Dioxide 22 Anion Gap 15 BUN 60 H Creatinine 1.93 H Estim Creat Clear Calc 29.8 Estimated GFR 33 POC Glucose 222 H Random Glucose Fasting Glucose 229 H Calcium 8.6 Magnesium Total Bilirubin Direct Bilirubin AST ALT Alkaline Phosphatase Troponin I High Sens Total Protein Albumin Lipase Urine Color Urine Appearance Urine pH Ur Specific [place] Urine Protein Urine Glucose (UA) Urine Ketones Urine Blood Urine Nitrite Ur Leukocyte Esterase Urine RBC Urine WBC Ur Squamous Epith Cells Urine Bacteria COVID-19 ([facility]I) COVID-[employer] Blood Type Antibody Screen Quality Stroke Does the patient have a stroke diagnosis?: No VTE Prior VTE?: No VTE Risk Level:: Surgical - high VTE Device Contraindication: N/A - Device Ordered VTE Drug Contraindication: N/A - Med Ordered Assessment and Plan (1) Intertrochanteric fracture of left femur: Status: Acute Assessment and Plan: 84M presented with hip fracture left hip fracture plan for OR today DM insulin dementia high risk for delerium, orienting strategies
--- NOTE | 2020-10-26 09:59 | MHC.CM.PN ---
Addendum entered by Starla Pimentel RN 10/26/20 10:07: HCP PIOTR ONOFRE, NOT REACHABLE BY PHONE, NOTIFY SNF AND [facility]. Original Note: EMR REVIEWED, PT ADMITTED AFTER FALL W/LEFT HIP FX, PT SCHEDULED FOR SURGERY TODAY, CM ME W/PT WHO REPORTS HE USES A WALKER AND WC, HAS ASSISTANCE W/ALL CARE FROM STAFF AT SNF, PT IS ABLE TO VERIFY PCP AND REPORTS HIS NEPHEW IS HIS HCP, COPY REQUESTED FROM SNF PER PT HE WOULD LIKE TO RETURN TO [facility] FOR STR AND LTC, CM MET WITH ORTHO PA WHO REPORTED PT'S HCP HAS GONE OFF GRID SO FOR CONTACT SNF NEEDS TO BE NOTIFIED AND THEY WILL SEND CM TO NEPHEWS HOME AND ASK HIM TO COME IN TO SIGN PAPERWORK/SPEAK WITH PA/HOSPITALIST. PT'S SISTER IS OLD HCP AND SHE HAS . D/C PLAN: RETURN TO [facility], [facility] TRANSPORT PCP: SATYA MEEHAN
[2020-10-26 11:20] LABS: Glucose, Whole Blood 224 mg/dL (60-115)
[2020-10-26] MEDS: Lactated Ringers 1,000 ML 50 ML IVCONT ×2 (11:46→15:02)
--- NOTE | 2020-10-26 12:04 | P.CONAN_ITS ---
[facility] Active Problems Active Problems: All Active Problems (Updated 10/25/20 @ 14:26 by Kalpana barnes PA-C) Intertrochanteric fracture of left femur (Acute) Fracture of femur (Acute) Past Medical History Medical History Anemia Dementia Depression Diabetes Falls HTN (hypertension) Social History Social History Household Members: None Housing: Assisted Living Facility Do you presently have visiting nurse or other home services: Yes Unable to assess alcohol history related to: Unknown Patient Tobacco Use Status: Tobacco use Unknown Use of substances other than those prescribed or required for medical reasons: No Currently Displaying Signs/Symptoms of Drug Intoxication Withdrawal: No Are you DNR?: Yes Advance Directives: No Advance Directives Information Provided: Yes Do you have thoughts of harming others: None Do you have a plan to hurt others: No Plan Recently lost weight without trying: Unsure Nutrition Risks: No Nutritional Risk Poor oral hygiene: No service: No Current occupational status: retired [employer] Allergies Allergy/AdvReac Type Severity Reaction Status Date / Time No Known Allergies Allergy Verified 10/26/20 11:20 Active Medications: Current Medications Generic Name Dose Route Start Last Admin Trade Name Freq PRN Reason Stop Dose Admin Acetaminophen 650 mg 10/25/20 15:11 10/25/20 22:12 Acetaminophen 325 Mg Tablet PO 650 mg Q4H PRN Administration Pain Hydromorphone HCl 0.25 mg 10/26/20 11:41 Hydromorphone Hcl 0.5 Mg/0.5 Ml Syringe IVPUSH Q5M PRN Pain, Severe (Pain Scale 7-10) Lactated Ringer's 1,000 mls @ 50 mls/hr 10/26/20 11:45 10/26/20 11:46 Lr IVCONT 50 mls/hr .Q20H AISHWARYA Administration Insulin Glargine 10 unit 10/25/20 21:00 10/25/20 20:36 Insulin Glargine,Hum.Rec.Anlog 100 Unit/Ml 10 Ml Vial SUBCUT 10 unit BEDTIME AISHWARYA Administration Insulin Human Lispro 0 unit 10/25/20 16:30 10/26/20 11:06 Insulin Lispro 100 Unit/Ml 3 Ml Vial SUBCUT Not Given QIDACHS [facility] Protocol Ondansetron HCl 4 mg 10/26/20 11:41 Ondansetron Hcl 4 Mg/2 Ml Vial IVPUSH ONCE PRN Nausea and Vomiting Pharmacy Consult 1 each 10/25/20 09:43 Consult Rx Perform Med Rec MISCELLANE ONCE PRN Consult order Sertraline HCl 25 mg 10/26/20 09:00 10/26/20 07:41 Sertraline Hcl 25 Mg Tablet PO 25 mg DAILY [facility] Administration Sodium Chloride 3 ml 10/25/20 16:00 10/26/20 07:41 0.9 % Sodium Chloride Flush 3 Ml Syringe IVFLUSH 3 ml QSHIFT [facility] Administration Home Medications Medication Instructions Recorded Confirmed Last Taken Type acetaminophen [Tylenol] 650 mg PO Q4H PRN 10/25/20 10/25/20 Unknown History ferrous sulfate 325 mg PO DAILY 10/25/20 10/25/20 Unknown History insulin aspart U-100 [Novolog 6 unit SUBCUT BIDAC 10/25/20 10/25/20 Unknown History U-100 Insulin aspart] insulin aspart U-100 [Novolog 12 unit SUBCUT DAILY PRN 10/25/20 10/25/20 Unknown History U-100 Insulin aspart] insulin glargine [Lantus U-100 24 unit SUBCUT BEDTIME 10/25/20 10/25/20 Unknown History Insulin] cxdyndsc-khd-xzidgzh sulfate 1 tab PO DAILY 10/25/20 10/25/20 Unknown History [Multilex] nystatin 1 appl TOPICAL BID 10/25/20 10/25/20 Unknown History sertraline 25 mg PO DAILY 10/25/20 10/25/20 Unknown History Exam Exam Date and Time: October 26, 2020 1204 Height,Weight and Vital Signs: Height 5 ft 11 in Weight 163 lb 2.273 oz Last Vital Signs Temp 97.9 F 10/26/20 11:20 Pulse 68 10/26/20 11:20 Resp 18 10/26/20 11:20 BP 114/47 L 10/26/20 11:20 Pulse Ox 97 10/26/20 11:20 Pertinent Lab Results Pertinent Lab Results: Laboratory Tests 10/25/20 10/25/20 10/25/20 09:55 09:55 09:55 WBC 10.0 RBC 3.21 L Hgb 9.5 L Hct 29.8 L MCV 92.8 MCH 29.6 MCHC 31.9 RDW 12.5 Plt Count 174 MPV 9.3 L Immature Gran % (Auto) 0.6 H Neut % (Auto) 76.9 H Lymph % (Auto) 12.3 L [place] % (Auto) 6.9 Eos % (Auto) 3.1 Baso % (Auto) 0.2 Lymph # (Auto) 1.2 [place] # (Auto) 0.7 Eos # (Auto) 0.3 Baso # (Auto) 0.0 Abs Immat Gran (auto) 0.06 H Absolute Neuts (auto) 7.7 Absolute Nucleated RBC 0.000 Nucleated RBC % (auto) 0.0 Sodium 137 Potassium 5.0 Chloride 108 Carbon Dioxide 23 Anion Gap 11 L BUN 62 H Creatinine 1.65 H Estim Creat Clear Calc 34.8 Estimated GFR 40 POC Glucose Random Glucose 326 H Fasting Glucose Calcium 8.3 L Magnesium 2.1 Total Bilirubin 0.3 Direct Bilirubin < 0.2 AST 13 ALT 15 Alkaline Phosphatase 95 Troponin I High Sens Total Protein 7.2 Albumin 3.4 L Lipase 9 Urine Color Urine Appearance Urine pH Ur Specific [place] Urine Protein Urine Glucose (UA) Urine Ketones Urine Blood Urine Nitrite Ur Leukocyte Esterase Urine RBC Urine WBC Ur Squamous Epith Cells Urine Bacteria COVID-19 (MACI) Negative COVID-19 Clin Com See Note Blood Type Antibody Screen 10/25/20 10/25/20 10/25/20 09:55 11:41 17:22 WBC RBC Hgb Hct MCV MCH MCHC RDW Plt Count MPV Immature Gran % (Auto) Neut % (Auto) Lymph % (Auto) [place] % (Auto) Eos % (Auto) Baso % (Auto) Lymph # (Auto) [place] # (Auto) Eos # (Auto) Baso # (Auto) Abs Immat Gran (auto) Absolute Neuts (auto) Absolute Nucleated RBC Nucleated RBC % (auto) Sodium Potassium Chloride Carbon Dioxide Anion Gap BUN Creatinine Estim Creat Clear Calc Estimated GFR POC Glucose 176 H Random Glucose Fasting Glucose Calcium Magnesium Total Bilirubin Direct Bilirubin AST ALT Alkaline Phosphatase Troponin I High Sens 8.0 Total Protein Albumin Lipase Urine Color Urine Appearance Urine pH Ur Specific [place] Urine Protein Urine Glucose (UA) Urine Ketones Urine Blood Urine Nitrite Ur Leukocyte Esterase Urine RBC Urine WBC Ur Squamous Epith Cells Urine Bacteria COVID-19 (MACI) COVID-19 Clin Com Blood Type O Positive Antibody Screen NEGATIVE 10/25/20 10/25/20 10/26/20 19:13 20:16 06:43 WBC 14.4 H RBC 3.21 L Hgb 9.6 L Hct 30.2 L MCV 94.1 MCH 29.9 MCHC 31.8 RDW 12.8 Plt Count 148 L MPV 10.0 Immature Gran % (Auto) Neut % (Auto) Lymph % (Auto) [place] % (Auto) Eos % (Auto) Baso % (Auto) Lymph # (Auto) [place] # (Auto) Eos # (Auto) Baso # (Auto) Abs Immat Gran (auto) Absolute Neuts (auto) Absolute Nucleated RBC 0.000 Nucleated RBC % (auto) 0.0 Sodium Potassium Chloride Carbon Dioxide Anion Gap BUN Creatinine Estim Creat Clear Calc Estimated GFR POC Glucose 304 H Random Glucose Fasting Glucose Calcium Magnesium Total Bilirubin Direct Bilirubin AST ALT Alkaline Phosphatase Troponin I High Sens Total Protein Albumin Lipase Urine Color YELLOW Urine Appearance CLOUDY Urine pH 6.0 Ur Specific [place] 1.015 Urine Protein 1+ H Urine Glucose (UA) NEG Urine Ketones NEG Urine Blood TRACE Urine Nitrite NEG Ur Leukocyte Esterase 3+ H Urine RBC 1-4 Urine WBC 76-150 H Ur Squamous Epith Cells TRACE Urine Bacteria 3+ COVID-19 (MACI) COVID-19 [facility] Blood Type Antibody Screen 10/26/20 10/26/20 10/26/20 06:43 07:28 11:16 WBC RBC Hgb Hct MCV MCH MCHC RDW Plt Count MPV Immature Gran % (Auto) Neut % (Auto) Lymph % (Auto) [place] % (Auto) Eos % (Auto) Baso % (Auto) Lymph # (Auto) [place] # (Auto) Eos # (Auto) Baso # (Auto) Abs Immat Gran (auto) Absolute Neuts (auto) Absolute Nucleated RBC Nucleated RBC % (auto) Sodium 141 Potassium 4.9 Chloride 109 H Carbon Dioxide 22 Anion Gap 15 BUN 60 H Creatinine 1.93 H Estim Creat Clear Calc 29.8 Estimated GFR 33 POC Glucose 222 H 224 H Random Glucose Fasting Glucose 229 H Calcium 8.6 Magnesium Total Bilirubin Direct Bilirubin AST ALT Alkaline Phosphatase Troponin I High Sens Total Protein Albumin Lipase Urine Color Urine Appearance Urine pH Ur Specific [place] Urine Protein Urine Glucose (UA) Urine Ketones Urine Blood Urine Nitrite Ur Leukocyte Esterase Urine RBC Urine WBC Ur Squamous Epith Cells Urine Bacteria COVID-19 (MACI) COVID-19 Clin Com Blood Type Antibody Screen Airway Mallampati Class: III TM Dist: >3cm Denture: Lower Assessment and Plan Assessment Anesthesia Assessment: Anesthesia Plan Discussed and Chart Reviewed Final Anesthetic Review NPO: Yes ASA Class: III Final Preanesthetic Review: No Changes in Pt Med Stat, Meds/Allgs Chart Reviewed, Consent Obtained/Reviewed and Anes Risks/Benef Reviewed Patient Risk: Intermediate Procedure Risk: Low Anesthetic Plan Anesthetic Plan: GA Disposition: Standard PACU
[2020-10-26 15:08] LABS: Glucose, Whole Blood 273 mg/dL (60-115)
[2020-10-26 16:51] LABS: Glucose, Whole Blood 262 mg/dL (60-115)
[2020-10-26 20:21] LABS: Glucose, Whole Blood 388 mg/dL (60-115)
[2020-10-26] MEDS: Insulin Glargine,Hum.rec.anlog 100 UNIT/ML 10 ML VIAL 10 UNIT SUBCUT (21:17)
[2020-10-26] MEDS: Acetaminophen 325 MG TABLET 650 MG PO (21:29)
[2020-10-27 03:04] VITALS: BP 92/44; PULSE 88; RESP 18; TEMP 36.2; O2SAT 94
[2020-10-27 06:27] LABS: Hematocrit 25.7 % (42-52); Mean Corpuscular HGB Conc 31.1 g/dl (31.0-36.0); Mean Corpuscular Hemoglobin 29.7 pg (27.0-33.0); Mean Corpuscular Volume 95.5 fL (80-98); Mean Platelet Volume 10.8 fL (9.4-12.4); Platelet Count 130 X10*3/uL (160-400); Red Blood Count 2.69 X10*6/uL (4.60-5.80); Red Cell Distribution Width 13.2 % (11.0-16.0); White Blood Count 15.4 X10*3/uL (4.8-10.8)
--- NOTE | 2020-10-27 06:38 | P.CDIC_ITS ---
CDI Concurrent Query Service Date: 10/27/20 Documentation Clarification: Please clarify if you are treating a proba ble/suspected/likely or confirmed: Clarify which of the following accurately represents the patient's renal status: - Acute renal failure - see criteria - Acute renal failure with suspected ATN - Acute renal failure with other pathology (medullary, papillary, or cortical necrosis) - Acute renal failure (with type, appropriate) on Chronic Kidney Disease (CKD) - see criteria - Acute kidney injury (non-traumatic) - see criteria - CKD, please provide stage - see criteria - ESRD - CKD V now requiring permanent dialysis and/or transplant - Other (please specify): - Unable to determine Criteria for YOSELYN* 1)Increase in serum creatinine by > 0.3 mg/dL within 48 hours, or 2)Increase in serum creatinine to > 1.5 times baseline, which is known or presumed to have occurred within 7 days, or 3)Urine volume < 0.5 mL/kg/hour for six hours CKD Staging: - Stage G1 - Normal or High - 90 - Stage G2 - Mildly Decreased - 60-89 - Stage G3a - Mildly to Moderately Decreased - 45-59 - Stage G3b - Mildly to Severely Decreased - 30-44 - Stage G4 - Severely Decreased - 15-29 - Stage G5 - Kidney Failure - < 15 Kidney Disease: Improving Global Outcomes (KDIGO) 2012 Use of terms such as suspected, likely, concern for, or probable (associated with a specific diagnosis that is being evaluated, monitored, or treated as if it exists) are acceptable and can be coded in the inpatient setting, when documented at the time of discharge. PLEASE DO NOT DELETE/MODIFY EXISTING CONTENT Additional information is needed in order to code to the highest accuracy and appropriate Severity of Illness (SOI). Please clarify the information noted below in your progress notes and discharge summary. Risk Factors/Clinical Indicators/Treatments Admit with fall and left intertrochanteric femur fracture BUN 62 Creatinine 1.65 No baseline in EMR CDS: Dinorah Lawson RN Contact Number: [phone] Please Review the information above and exercise your independent professional judgment in responding to the query. If you concur, pleas document in the PROGRESS NOTES and DISCHARGE SUMMARY. If you do not agree with the query, please document in the query above. THIS QUERY IS PART OF THE PERMANENT MEDICAL RECORD
[2020-10-27] MEDS: cefTRIAXone sodium 1 GM in 0.9 % Sodium Chloride 50 ML IV (07:26)
[2020-10-27 07:30] LABS: Anion Gap 14 (12-20); Blood Urea Nitrogen 80 mg/dL (9-16); Carbon Dioxide 22 mmol/L (22-29); Chloride 110 mmol/L (96-108); Creatinine Clr Calc Pharmacy 21.6; Estimated Glomerular Filt Rate 23; Glucose Fasting 267 mg/dL (60-99); Potassium 5.5 mmol/L (3.3-5.1); Sodium 140 mmol/L (135-145)
[2020-10-27 08:00] VITALS: BP 141/61; PULSE 73; RESP 16; TEMP 36.3; O2SAT 96
[2020-10-27] MEDS: Insulin Lispro 100 UNIT/ML 3 ML VIAL SUBCUT ×4 (08:04→21:04)
[2020-10-27] MEDS: Sertraline HCL 25 MG TABLET PO (08:04)
[2020-10-27 08:31] LABS: Glucose, Whole Blood 241 mg/dL (60-115)
[2020-10-27 08:37] VITALS: BP 141/61; PULSE 73; O2SAT 96
[2020-10-27] MEDS: Lactated Ringers 1,000 ML 100 ML IVCONT (09:24)
--- NOTE | 2020-10-27 09:46 | HO.PM.IMPN ---
Subjective Subjective Date of Service: 10/27/20 Interval History: no complaints Cardiovascular Cardiovascular: Reports no additional cardiovascular complaints Respiratory Respiratory: Reports no additional respiratory complaints Physical Exam Vital Signs: Vital Signs: Last Vital Signs Temp 97.4 F 10/27/20 08:00 Pulse 73 10/27/20 08:37 Resp 16 10/27/20 08:00 BP 141/61 H 10/27/20 08:37 Pulse Ox 96 10/27/20 08:37 Body Mass Index 22.7 General: AO X 1, no acute distress Resp: CTA bilateral CVS: S1,S2,RRR GI: soft, non tender, non distended Neuro: motor grossly intact Psych: impaired insight Objective Data Current Medications Generic Name Dose Route Start Last Admin Trade Name Freq PRN Reason Stop Dose Admin Acetaminophen 650 mg 10/25/20 15:11 10/26/20 21:29 Acetaminophen 325 Mg Tablet PO 650 mg Q4H PRN Administration Pain Aspirin 325 mg 10/27/20 22:00 Aspirin 325 Mg Tablet PO BID AISHWARYA Lactated Ringer's 1,000 mls @ 100 mls/hr 10/26/20 11:45 10/27/20 09:24 Lr IVCONT 100 mls/hr .Q10H AISHWARYA Administration Ceftriaxone Sodium 1 gm/ 50 mls @ 100 mls/hr 10/27/20 07:00 10/27/20 07:56 Sodium Chloride IV Infused Q24H AISHWARYA Infusion Insulin Glargine 10 unit 10/25/20 21:00 10/26/20 21:17 Insulin Glargine,Hum.Rec.Anlog 100 Unit/Ml 10 Ml Vial SUBCUT 10 unit BEDTIME AISHWARYA Administration Insulin Human Lispro 0 unit 10/25/20 16:30 10/27/20 08:04 Insulin Lispro 100 Unit/Ml 3 Ml Vial SUBCUT 4 unit QIDACHS AISHWARYA Administration Protocol Ondansetron HCl 4 mg 10/26/20 14:45 Ondansetron Hcl 4 Mg/2 Ml Vial IVPUSH Q8H PRN Nausea and Vomiting Pharmacy Consult 1 each 10/25/20 09:43 Consult Rx Perform Med Rec MISCELLANE ONCE PRN Consult order Sertraline HCl 25 mg 10/26/20 09:00 10/27/20 08:04 Sertraline Hcl 25 Mg Tablet PO 25 mg DAILY AISHWARYA Administration Sodium Chloride 3 ml 10/25/20 16:00 10/27/20 07:09 0.9 % Sodium Chloride Flush 3 Ml Syringe IVFLUSH Not Given QSHIFT AISHWARYA Sodium Chloride 3 ml 10/26/20 16:00 10/27/20 07:09 0.9 % Sodium Chloride Flush 3 Ml Syringe IVFLUSH Not Given QSHIFT AISHWARYA Labs CBC & Chem 7: 10/27/20 05:54 10/27/20 05:54 Labs: Laboratory Results - last 24 hr 10/26/20 10/26/20 10/26/20 11:16 15:05 16:42 WBC RBC Hgb Hct MCV MCH MCHC RDW Plt Count MPV Absolute Nucleated RBC Nucleated RBC % (auto) Sodium Potassium Chloride Carbon Dioxide Anion Gap BUN Creatinine Estim Creat Clear Calc Estimated GFR POC Glucose 224 H 273 H 262 H Fasting Glucose Calcium 10/26/20 10/27/20 10/27/20 20:09 05:54 05:54 WBC 15.4 H RBC 2.69 L Hgb 8.0 L Hct 25.7 L MCV 95.5 MCH 29.7 MCHC 31.1 RDW 13.2 Plt Count 130 L MPV 10.8 Absolute Nucleated RBC 0.000 Nucleated RBC % (auto) 0.0 Sodium 140 Potassium 5.5 H Chloride 110 H Carbon Dioxide 22 Anion Gap 14 BUN 80 H* D Creatinine 2.66 H Estim Creat Clear Calc 21.6 Estimated GFR 23 POC Glucose 388 H* Fasting Glucose 267 H Calcium 8.0 L D 10/27/20 08:01 WBC RBC Hgb Hct MCV MCH MCHC RDW Plt Count MPV Absolute Nucleated RBC Nucleated RBC % (auto) Sodium Potassium Chloride Carbon Dioxide Anion Gap BUN Creatinine Estim Creat Clear Calc Estimated GFR POC Glucose 241 H Fasting Glucose Calcium Microbiology Microbiology Results: Microbiology 10/25/20 19:13 Urine Culture - Preliminary Urine Catheterized - Horn Catheter Escherichia coli Quality Stroke Does the patient have a stroke diagnosis?: No VTE Prior VTE?: No VTE Risk Level:: Surgical - high VTE Device Contraindication: N/A - Device Ordered VTE Drug Contraindication: N/A - Med Ordered Assessment and Plan (1) Intertrochanteric fracture of left femur: Status: Acute Assessment and Plan: 84M presented with hip fracture left hip fracture POD 1 YOSELYN likely due to hypotension, monitor, IVF DM insulin dementia high risk for delerium, orienting strategies
--- NOTE | 2020-10-27 10:36 | HO.POSTANES ---
Post Anesthesia Evaluation Post Anesthesia Evaluation Vital Signs: Vital Signs Temp Pulse Resp BP Pulse Ox 10/27/20 08:37 73 141/61 H 96 10/27/20 08:00 97.4 F 73 16 141/61 H 96 10/27/20 03:04 97.2 F 88 18 92/44 L 94 10/26/20 23:40 98.8 F 110 H 15 110/50 L 94 Anesthesia: General Mental Status: Sedated Pain Control: Satisfactory Nausea/Vomiting: None Hydration: Adequate Anesthesia-Related Issues: No Anes. Related Issues
--- NOTE | 2020-10-27 10:41 | P.PNOP_ITS ---
Progress Note: A&P Assessment and plan (1) Intertrochanteric fracture of left femur: Status: Acute Assessment and Plan: * Continue pain mgmnt * Begin Aspirin for dvt ppx * begin PT for Left hip * Dispo planning-Pending PT eval, pain mgmnt Fall Risk Details Current Medications: Current Medications Generic Name Dose Route Start Last Admin Trade Name Freq PRN Reason Stop Dose Admin Acetaminophen 650 mg 10/25/20 15:11 10/26/20 21:29 Acetaminophen 325 Mg Tablet PO 650 mg Q4H PRN Administration Pain Aspirin 325 mg 10/27/20 22:00 Aspirin 325 Mg Tablet PO BID AISHWARYA Lactated Ringer's 1,000 mls @ 100 mls/hr 10/26/20 11:45 10/27/20 09:24 Lr IVCONT 100 mls/hr .Q10H AISHWARYA Administration Ceftriaxone Sodium 1 gm/ 50 mls @ 100 mls/hr 10/27/20 07:00 10/27/20 07:56 Sodium Chloride IV Infused Q24H AISHWARYA Infusion Insulin Glargine 10 unit 10/25/20 21:00 10/26/20 21:17 Insulin Glargine,Hum.Rec.Anlog 100 Unit/Ml 10 Ml Vial SUBCUT 10 unit BEDTIME AISHWARYA Administration Insulin Human Lispro 0 unit 10/25/20 16:30 10/27/20 08:04 Insulin Lispro 100 Unit/Ml 3 Ml Vial SUBCUT 4 unit QIDACHS AISHWARYA Administration Protocol Ondansetron HCl 4 mg 10/26/20 14:45 Ondansetron Hcl 4 Mg/2 Ml Vial IVPUSH Q8H PRN Nausea and Vomiting Pharmacy Consult 1 each 10/25/20 09:43 Consult Rx Perform Med Rec MISCELLANE ONCE PRN Consult order Sertraline HCl 25 mg 10/26/20 09:00 10/27/20 08:04 Sertraline Hcl 25 Mg Tablet PO 25 mg DAILY AISHWARYA Administration Sodium Chloride 3 ml 10/25/20 16:00 10/27/20 07:09 0.9 % Sodium Chloride Flush 3 Ml Syringe IVFLUSH Not Given QSHIFT AISHWARYA Sodium Chloride 3 ml 10/26/20 16:00 10/27/20 07:09 0.9 % Sodium Chloride Flush 3 Ml Syringe IVFLUSH Not Given QSHIFT AISHWARYA Time Spent With Patient Time: Total time spent is greater than 50% in coordination of care (as documented) at patient's floor/unit and/or counseling patient: Time with patient: less than 15 minutes Subjective Subjective Date of Service: 10/27/20 Interval history: Postop day 1 status post left hip IM nail No overnight events Resting in bed tolerating pain well No chest pain shortness of breath or palpitations. Physical Exam Vital Signs: Vital Signs: Last Vital Signs Temp 97.4 F 10/27/20 08:00 Pulse 73 10/27/20 08:37 Resp 16 10/27/20 08:00 BP 141/61 H 10/27/20 08:37 Pulse Ox 96 10/27/20 08:37 Body Mass Index 22.7 Const: General: cooperative, healthy appearing and no acute distress Resp: Effort & Inspection: normal respiratory effort and able to speak in complete sentences Cardio: Rate: regular rate Peripheral pulses: Peripheral pulses 2+ throughout GI: Palpation (GI): Soft to palpation Skin: General skin exam: no rashes or lesions noted Extrem: Other: Left hip incision clean dry and intact. No erythema or swelling. Sensation intact. Procedures Date of Service Date of Service: 10/27/20 Quality Stroke Does the patient have a stroke diagnosis?: No VTE Prior VTE?: No VTE Risk Level:: Surgical - high VTE Device Contraindication: N/A - Device Ordered VTE Drug Contraindication: N/A - Med Ordered
[2020-10-27 11:11] VITALS: BP 146/65; PULSE 74; RESP 17; TEMP 36.4; O2SAT 97
[2020-10-27 11:39] LABS: Glucose, Whole Blood 320 mg/dL (60-115)
[2020-10-27 16:00] VITALS: BP 132/61; PULSE 68; RESP 15; TEMP 37.1; O2SAT 96
[2020-10-27 16:52] LABS: Glucose, Whole Blood 296 mg/dL (60-115)
[2020-10-27 19:25] VITALS: BP 128/68; PULSE 83; RESP 14; TEMP 37.2; O2SAT 94
[2020-10-27 20:29] LABS: Glucose, Whole Blood 329 mg/dL (60-115)
[2020-10-27] MEDS: Aspirin 325 MG TABLET PO (21:04)
[2020-10-27] MEDS: Insulin Glargine,Hum.rec.anlog 100 UNIT/ML 10 ML VIAL 10 UNIT SUBCUT (21:04)
[2020-10-27] MEDS: 0.9 % Sodium Chloride Flush 3 ML SYRINGE IVFLUSH (21:05)
[2020-10-28] VITALS (9 sets, daily range): BP systolic 100–179; BP diastolic 46–75; PULSE 59–74; RESP 16–19; TEMP 36.1–36.6; O2SAT 94–97
[2020-10-28] MEDS: Lactated Ringers 1,000 ML 100 ML IVCONT ×2 (04:25→18:22)
[2020-10-28] MEDS: cefTRIAXone sodium 1 GM in 0.9 % Sodium Chloride 50 ML IV (06:33)
[2020-10-28 07:02] LABS: Hematocrit 22.9 % (42-52); Hemoglobin 7.3 g/dl (14.0-18.0); Mean Corpuscular HGB Conc 31.9 g/dl (31.0-36.0); Mean Corpuscular Volume 94.2 fL (80-98); Mean Platelet Volume 11.1 fL (9.4-12.4); Platelet Count 116 X10*3/uL (160-400); Red Blood Count 2.43 X10*6/uL (4.60-5.80); Red Cell Distribution Width 13.2 % (11.0-16.0); White Blood Count 11.7 X10*3/uL (4.8-10.8)
[2020-10-28 07:33] LABS: Anion Gap 12 (12-20); Blood Urea Nitrogen 81 mg/dL (9-16); Calcium 7.7 mg/dL (8.4-10.2); Carbon Dioxide 24 mmol/L (22-29); Chloride 109 mmol/L (96-108); Creatinine Clr Calc Pharmacy 28.2; Estimated Glomerular Filt Rate 31; Glucose Fasting 217 mg/dL (60-99); Potassium 4.5 mmol/L (3.3-5.1); Sodium 140 mmol/L (135-145)
[2020-10-28 08:25] LABS: Glucose, Whole Blood 224 mg/dL (60-115)
[2020-10-28] MEDS: Insulin Lispro 100 UNIT/ML 3 ML VIAL SUBCUT ×4 (08:56→21:49)
--- NOTE | 2020-10-28 09:05 | PM.PNORT ---
Progress Note: A&P Assessment and plan (1) Intertrochanteric fracture of left femur: Status: Acute Assessment and Plan: WBAT with PT chemoprophylaxis and mechanoprophylaxis DIspo planning Fall Risk Details Current Medications: Current Medications Generic Name Dose Route Start Last Admin Trade Name Freq PRN Reason Stop Dose Admin Acetaminophen 650 mg 10/25/20 15:11 10/26/20 21:29 Acetaminophen 325 Mg Tablet PO 650 mg Q4H PRN Administration Pain Aspirin 325 mg 10/27/20 22:00 10/27/20 21:04 Aspirin 325 Mg Tablet PO 325 mg BID AISHWARYA Administration Lactated Ringer's 1,000 mls @ 100 mls/hr 10/26/20 11:45 10/28/20 04:25 Lr IVCONT 100 mls/hr .Q10H AISHWARYA Administration Ceftriaxone Sodium 1 gm/ 50 mls @ 100 mls/hr 10/27/20 07:00 10/28/20 08:06 Sodium Chloride IV Infused Q24H AISHWARYA Infusion Insulin Glargine 10 unit 10/25/20 21:00 10/27/20 21:04 Insulin Glargine,Hum.Rec.Anlog 100 Unit/Ml 10 Ml Vial SUBCUT 10 unit BEDTIME AISHWARYA Administration Insulin Human Lispro 0 unit 10/25/20 16:30 10/28/20 08:56 Insulin Lispro 100 Unit/Ml 3 Ml Vial SUBCUT 4 unit QIDACHS AISHWARYA Administration Protocol Ondansetron HCl 4 mg 10/26/20 14:45 Ondansetron Hcl 4 Mg/2 Ml Vial IVPUSH Q8H PRN Nausea and Vomiting Pharmacy Consult 1 each 10/25/20 09:43 Consult Rx Perform Med Rec MISCELLANE ONCE PRN Consult order Sertraline HCl 25 mg 10/26/20 09:00 10/27/20 08:04 Sertraline Hcl 25 Mg Tablet PO 25 mg DAILY AISHWARYA Administration Sodium Chloride 3 ml 10/25/20 16:00 10/28/20 08:59 0.9 % Sodium Chloride Flush 3 Ml Syringe IVFLUSH Not Given QSHIFT AISHWARYA Sodium Chloride 3 ml 10/26/20 16:00 10/27/20 23:47 0.9 % Sodium Chloride Flush 3 Ml Syringe IVFLUSH Not Given QSHIFT AISHWARYA Time Spent With Patient Time: Total time spent is greater than 50% in coordination of care (as documented) at patient's floor/unit and/or counseling patient: Time with patient: less than 15 minutes Subjective Subjective Date of Service: 10/28/20 Principal diagnosis: left IT fx Interval history: No overnight events No complaints Physical Exam Vital Signs: Vital Signs: Last Vital Signs Temp 97.0 F 10/28/20 08:00 Pulse 59 10/28/20 08:00 Resp 18 10/28/20 08:00 BP 146/63 H 10/28/20 08:00 Pulse Ox 97 10/28/20 08:00 Body Mass Index 22.7 Extrem: Other: moving toes and following simple commands. Dressing c/d/i Procedures Date of Service Date of Service: 10/28/20 Quality Stroke Does the patient have a stroke diagnosis?: No VTE Prior VTE?: No VTE Risk Level:: Surgical - high VTE Device Contraindication: N/A - Device Ordered VTE Drug Contraindication: N/A - Med Ordered
[2020-10-28] MEDS: Aspirin 325 MG TABLET PO ×2 (09:52→21:48)
[2020-10-28] MEDS: Sertraline HCL 25 MG TABLET PO (09:53)
[2020-10-28] MEDS: 0.9 % Sodium Chloride Flush 3 ML SYRINGE IVFLUSH (09:53)
--- NOTE | 2020-10-28 10:15 | HO.PM.IMPN ---
Subjective Subjective Date of Service: 10/28/20 Interval History: no complaints Cardiovascular Cardiovascular: Reports no additional cardiovascular complaints Gastrointestinal Gastrointestinal: Reports no additional gastrointestinal complaints Physical Exam Vital Signs: Vital Signs: Last Vital Signs Temp 97.4 F 10/28/20 09:48 Pulse 67 10/28/20 09:48 Resp 16 10/28/20 09:48 BP 124/54 L 10/28/20 09:48 Pulse Ox 97 10/28/20 08:00 Body Mass Index 22.7 General: AO X 1, no acute distress Resp: CTA bilateral CVS: S1,S2,RRR GI: soft, non tender, non distended Neuro: motor grossly intact Psych: impaired insight Objective Data Current Medications Generic Name Dose Route Start Last Admin Trade Name Freq PRN Reason Stop Dose Admin Acetaminophen 650 mg 10/25/20 15:11 10/26/20 21:29 Acetaminophen 325 Mg Tablet PO 650 mg Q4H PRN Administration Pain Aspirin 325 mg 10/27/20 22:00 10/28/20 09:52 Aspirin 325 Mg Tablet PO 325 mg BID AISHWARYA Administration Lactated Ringer's 1,000 mls @ 100 mls/hr 10/26/20 11:45 10/28/20 04:25 Lr IVCONT 100 mls/hr .Q10H AISHWARYA Administration Ceftriaxone Sodium 1 gm/ 50 mls @ 100 mls/hr 10/27/20 07:00 10/28/20 08:06 Sodium Chloride IV Infused Q24H AISHWARYA Infusion Insulin Glargine 10 unit 10/25/20 21:00 10/27/20 21:04 Insulin Glargine,Hum.Rec.Anlog 100 Unit/Ml 10 Ml Vial SUBCUT 10 unit BEDTIME AISHWARYA Administration Insulin Human Lispro 0 unit 10/25/20 16:30 10/28/20 08:56 Insulin Lispro 100 Unit/Ml 3 Ml Vial SUBCUT 4 unit QIDACHS AISHWARYA Administration Protocol Ondansetron HCl 4 mg 10/26/20 14:45 Ondansetron Hcl 4 Mg/2 Ml Vial IVPUSH Q8H PRN Nausea and Vomiting Pharmacy Consult 1 each 10/25/20 09:43 Consult Rx Perform Med Rec MISCELLANE ONCE PRN Consult order Sertraline HCl 25 mg 10/26/20 09:00 10/28/20 09:53 Sertraline Hcl 25 Mg Tablet PO 25 mg DAILY AISHWARYA Administration Sodium Chloride 3 ml 07/21/21 16:00 10/28/20 09:53 0.9 % Sodium Chloride Flush 3 Ml Syringe IVFLUSH 3 ml QSHIFT AISHWARYA Administration Sodium Chloride 3 ml 10/26/20 16:00 10/28/20 09:58 0.9 % Sodium Chloride Flush 3 Ml Syringe IVFLUSH Not Given QSHIFT AISHWARYA Labs CBC & Chem 7: 10/28/20 06:03 10/28/20 06:03 Labs: Laboratory Results - last 24 hr 10/25/20 10/27/20 10/27/20 11:41 11:13 16:47 WBC RBC Hgb Hct MCV MCH MCHC RDW Plt Count MPV Absolute Nucleated RBC Nucleated RBC % (auto) Sodium Potassium Chloride Carbon Dioxide Anion Gap BUN Creatinine Estim Creat Clear Calc Estimated GFR POC Glucose 320 H 296 H Fasting Glucose Calcium Blood Type O Positive Antibody Screen NEGATIVE Crossmatch See Detail 10/27/20 10/28/20 10/28/20 20:21 06:03 06:03 WBC 11.7 H RBC 2.43 L Hgb 7.3 L Hct 22.9 L MCV 94.2 MCH 30.0 MCHC 31.9 RDW 13.2 Plt Count 116 L MPV 11.1 Absolute Nucleated RBC 0.000 Nucleated RBC % (auto) 0.0 Sodium 140 Potassium 4.5 Chloride 109 H Carbon Dioxide 24 Anion Gap 12 BUN 81 H* Creatinine 2.04 H Estim Creat Clear Calc 28.2 Estimated GFR 31 POC Glucose 329 H Fasting Glucose 217 H Calcium 7.7 L Blood Type Antibody Screen Crossmatch 10/28/20 08:21 WBC RBC Hgb Hct MCV MCH MCHC RDW Plt Count MPV Absolute Nucleated RBC Nucleated RBC % (auto) Sodium Potassium Chloride Carbon Dioxide Anion Gap BUN Creatinine Estim Creat Clear Calc Estimated GFR POC Glucose 224 H Fasting Glucose Calcium Blood Type Antibody Screen Crossmatch Microbiology Microbiology Results: Microbiology 10/25/20 19:13 Urine Culture - Final Urine Catheterized - Horn Catheter Escherichia coli Quality Stroke Does the patient have a stroke diagnosis?: No VTE Prior VTE?: No VTE Risk Level:: Surgical - high VTE Device Contraindication: N/A - Device Ordered VTE Drug Contraindication: N/A - Med Ordered Assessment and Plan (1) Intertrochanteric fracture of left femur: Status: Acute Assessment and Plan: 84M presented with hip fracture left hip fracture POD 2 YOSELYN improving continue IVF, monitor bmp anemia likely inflammatory/blood loss will transfuse 1 unit prbc, monitor cbc DM insulin dementia high risk for delerium, orienting strategies
[2020-10-28 11:41] LABS: Glucose, Whole Blood 235 mg/dL (60-115)
[2020-10-28 17:00] LABS: Glucose, Whole Blood 248 mg/dL (60-115)
[2020-10-28 20:15] LABS: Glucose, Whole Blood 287 mg/dL (60-115)
[2020-10-28] MEDS: Insulin Glargine,Hum.rec.anlog 100 UNIT/ML 10 ML VIAL 10 UNIT SUBCUT (21:48)
[2020-10-29] VITALS: BP 125/60; PULSE 107; RESP 16; TEMP 37.3; O2SAT 94
[2020-10-29 04:00] VITALS: BP 125/58; PULSE 75; RESP 16; TEMP 36.6; O2SAT 96
[2020-10-29] MEDS: Lactated Ringers 1,000 ML 100 ML IVCONT (04:48)
[2020-10-29 07:00] LABS: Hematocrit 23.7 % (42-52); Hemoglobin 7.6 g/dl (14.0-18.0); Mean Corpuscular HGB Conc 32.1 g/dl (31.0-36.0); Mean Corpuscular Hemoglobin 29.7 pg (27.0-33.0); Mean Corpuscular Volume 92.6 fL (80-98); Mean Platelet Volume 11.2 fL (9.4-12.4); Platelet Count 117 X10*3/uL (160-400); Red Blood Count 2.56 X10*6/uL (4.60-5.80); Red Cell Distribution Width 13.5 % (11.0-16.0); White Blood Count 15.4 X10*3/uL (4.8-10.8)
[2020-10-29 07:30] LABS: Anion Gap 12 (12-20); Blood Urea Nitrogen 75 mg/dL (9-16); Calcium 7.6 mg/dL (8.4-10.2); Carbon Dioxide 23 mmol/L (22-29); Chloride 112 mmol/L (96-108); Creatinine Clr Calc Pharmacy 30.7; Estimated Glomerular Filt Rate 35; Glucose Fasting 281 mg/dL (60-99); Potassium 4.6 mmol/L (3.3-5.1); Sodium 142 mmol/L (135-145)
[2020-10-29] MEDS: Insulin Lispro 100 UNIT/ML 3 ML VIAL SUBCUT ×2 (07:47→11:48)
[2020-10-29] MEDS: cefTRIAXone sodium 1 GM in 0.9 % Sodium Chloride 50 ML IV (07:48)
[2020-10-29] MEDS: Sertraline HCL 25 MG TABLET PO (07:48)
[2020-10-29] MEDS: Aspirin 325 MG TABLET PO (07:48)
[2020-10-29 07:49] LABS: Glucose, Whole Blood 273 mg/dL (60-115)
[2020-10-29 08:00] VITALS: BP 170/73; PULSE 67; RESP 17; TEMP 36.9; O2SAT 96
--- NOTE | 2020-10-29 09:59 | PM.DS ---
DS: Providers Provider Date of Service: 10/29/20 Date of admission: 10/25/20 15:13 Primary care physician: Donnell Lopez MD DS: Diagnosis Discharge Diagnosis (1) Intertrochanteric fracture of left femur: Status: Acute DS: Medications Discharge Medications Home Medications: Home Medications Medication Instructions Recorded Confirmed Lantus U-100 Insulin 24 unit SUBCUT BEDTIME 10/25/20 10/25/20 acetaminophen [Tylenol] 650 mg PO Q4H PRN 10/25/20 10/25/20 ferrous sulfate 325 mg PO DAILY 10/25/20 10/25/20 insulin aspart U-100 [Novolog 6 unit SUBCUT BIDAC 10/25/20 10/25/20 U-100 Insulin aspart] insulin aspart U-100 [Novolog 12 unit SUBCUT DAILY PRN 10/25/20 10/25/20 U-100 Insulin aspart] njkgnmqp-eyr-rzovsje sulfate 1 tab PO DAILY 10/25/20 10/25/20 nystatin 1 appl TOPICAL BID 10/25/20 10/25/20 sertraline 25 mg PO DAILY 10/25/20 10/25/20 Previous Rx's Medication Instructions Recorded aspirin 325 mg PO BID 42 Days #84 tab 10/27/20 DS: Summary Hospital Course Hospital Course: patient was admitted for mechanical fall complicated by left femur fracture, further complicate by YOSELYN and inflammatory/acute blood loss anemia. patient underwent IMN 10/26/20. he did have some mild YOSELYN on CKD III post operatively. he was treated with IV fluids, creatinine improved from 2.66 to 1.87. hgb was 7.3, he received 1 unit prbc, hgb improved to 7.6. patient's pain resolved, he will be discharged to SNF. he will continue asa 325mg bid for one month and follow up with ortho. Time Spent with Patient Time attestation: Total time spent providing and/or coordinating discharge services: Discharge coordination time: Greater than 30 minutes Quality: Stroke Does the patient have a stroke diagnosis?: No Physical Exam Vital Signs: Vital Signs: Last Vital Signs Temp 98.4 F 10/29/20 08:00 Pulse 67 10/29/20 08:00 Resp 17 10/29/20 08:00 BP 170/73 H 10/29/20 08:00 Pulse Ox 96 10/29/20 08:00 Body Mass Index 22.7 General: AO X 1, no acute distress Resp: CTA bilateral CVS: S1,S2,RRR GI: soft, non tender, non distended Neuro: motor grossly intact Psych: appropriate affect DS: Data Data Completed and Pending Labs on day of discharge: Laboratory Results - last 24 hr 10/25/20 10/28/20 10/28/20 11:41 11:31 16:50 WBC RBC Hgb Hct MCV MCH MCHC RDW Plt Count MPV Absolute Nucleated RBC Nucleated RBC % (auto) Sodium Potassium Chloride Carbon Dioxide Anion Gap BUN Creatinine Estim Creat Clear Calc Estimated GFR POC Glucose 235 H 248 H Fasting Glucose Calcium Crossmatch See Detail 10/28/20 10/29/20 10/29/20 19:59 06:19 06:19 WBC 15.4 H RBC 2.56 L Hgb 7.6 L Hct 23.7 L MCV 92.6 MCH 29.7 MCHC 32.1 RDW 13.5 Plt Count 117 L MPV 11.2 Absolute Nucleated RBC 0.000 Nucleated RBC % (auto) 0.0 Sodium 142 Potassium 4.6 Chloride 112 H Carbon Dioxide 23 Anion Gap 12 BUN 75 H Creatinine 1.87 H Estim Creat Clear Calc 30.7 Estimated GFR 35 POC Glucose 287 H Fasting Glucose 281 H Calcium 7.6 L Crossmatch 10/29/20 07:28 WBC RBC Hgb Hct MCV MCH MCHC RDW Plt Count MPV Absolute Nucleated RBC Nucleated RBC % (auto) Sodium Potassium Chloride Carbon Dioxide Anion Gap BUN Creatinine Estim Creat Clear Calc Estimated GFR POC Glucose 273 H Fasting Glucose Calcium Crossmatch Discharge Plan Discharge Patient Disposition: [facility] Discharge Diagnosis: Left hip IMN Referrals: Wallace Meza PA-C [Physician Environmental Coordinator] - 2 Weeks Donnell Lopez MD [Primary Care Provider] - 1 Week Discharge Medications: New aspirin 325 mg Tablet 325 mg PO BID 42 Days Qty: 84 RF: 0 Continued acetaminophen [Tylenol] 325 mg Tablet 650 mg PO Q4H PRN (Reason: Pain) RF: 0 Lantus U-100 Insulin 100 unit/mL Solution 24 unit SUBCUT BEDTIME RF: 0 insulin aspart U-100 [Novolog U-100 Insulin aspart] 100 unit/mL Solution 12 unit SUBCUT DAILY PRN (Reason: SUGARS >400) RF: 0 insulin aspart U-100 [Novolog U-100 Insulin aspart] 100 unit/mL Solution 6 unit SUBCUT BIDAC RF: 0 ferrous sulfate 325 mg (65 mg iron) Tablet 325 mg PO DAILY RF: 0 nystatin 100,000 unit/gram Cream 1 appl TOPICAL BID RF: 0 sertraline 25 mg Tablet 25 mg PO DAILY RF: 0 pctpcxnw-kfa-bbrinha sulfate 15 mg iron Tablet 1 tab PO DAILY RF: 0 Discharge Orders: Discharge Order (Routine); Ordered 10/29/20 Ordered By: Yonatan Macias Diet: advance to usual diet Activity on Discharge: Use cane or walker Stand Alone Forms: Patient Portal Discharge page Care Plan Goals: Restore function of joint Health Concerns: none Plan of Treatment: Physical Therapy Pain management DVT prophylaxis Assessment: Gait training, strengthening, ADLs Continue ASA for dvt ppx x4 weeks Keep dressing clean,dry and intact-no showering or tub baths Follow up with Orthopedics in 2 weeks
[2020-10-29 11:07] LABS: COVID-19 Test Negative (Negative)
--- NOTE | 2020-10-29 11:11 | MHC.CM.PN ---
PT CLEARED TO RETURN TO [facility] TODAY [facility]IA [facility]. SNF WILL INFORM PTS HCP HE DOES NOT HAVE A PHONE. PT WILL DC AT 1300 HOURS PENDING NEW COVID SWAB RESULTS
[2020-10-29 11:44] LABS: Glucose, Whole Blood 390 mg/dL (60-115)
[2020-10-29 12:00] VITALS: BP 153/62; PULSE 77; RESP 17; TEMP 36.7; O2SAT 96
--- NOTE | 2020-11-01 14:45 | W.PM.OPN ---
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 Was subsequently brought to the emergency department. Was admitted to a gym see with the above diagnosis. After medical clearance and discussing the risks, benefits, and alternatives of the surgery as well as the rehabilitation course he was mutually agreed upon to carry out following procedure. Permission was given but healthcare proxy OPERATIVE PROCEDURE Under a generalanesthetic the patient was placed supine on the fracture table. The rightleg was flexed and externally rotated out of the way. The operative leftleg was placed in standard boot traction. Closed reduction was performed under fluoroscopic guidance. This demonstrated the fracture to be reduced in a good position. Therefore the right hip and leg was then prepped and draped in standard barrier technique. Surgical time-out was then performed. The patient was identified. Procedure confirmed. Medical and allergy history is were reviewed. Preoperative antibiotics were given. Standard DVT prophylaxis was in place. All other items were discussed and agreed upon. Standard approach to tip of the trochanter was carried out. This was taken down through subcutaneous tissues with hemostasis achieved along way using electrocautery. Fascia julissa was divided along the length of the incision. The muscle was then divided bluntly to the tip of trochanter. Using a curved awl and under fluoroscopic guidance tip of the trochanter was entered. The guidewire was then subsequently passed through the curved awl and was successfully passed into the distal segment. A short nail was determined to be appropriate. This nail at 125 degree angle was selected and brought up onto the table. The step Reamer was used in standard fashion. Flexible Reamer was used in order to ensure a canal with of 12.5 mm. The nail was then assembled onto the guide in standard fashion and then passed over the guidewire across the fracture site when the guidewire was then removed. The nail was then seated until he was in the appropriate position for the lag screw. Through a stab incision using the guide for the 125 degree angle, the guides were set onto the lateral surface of the femur. Under fluoroscopic guidance the guidewire was inserted just inferior to the midline on the AP view and into the center of the head on the lateral view. This was measured to 105 mmand this leg screw was selected and brought up onto the table. The guidewire was over reamed under fluoroscopic guidance. The lag screw was then inserted until it was into the subchondral bone with excellent purchase. The set screw was then placed in standard fashion. The distal lock was then addressed. Stab incision was made. The guides were used in standard fashion. It was drilled. A 37.5 mm length screw was selected. This brought up the table inserted with excellent positioning. This point final imaging was taken after the guide had been removed which show the fracture reduced excellently and all hardware to be in appropriate position. We therefore proceeded to closure. Proximal wound was closed using 2. Dexon deep and 2-0 Dexon to approximate the skin. Is the skin was closed with ely. Similarly the distal incisions were closed with interrupted 2-0 Dexon and then ely. Sterile dressings were then applied. The patient's anesthesia was then reversed. They were taken out of traction and transferred supine to the room bed then to the recovery room in good condition. Intraoperatively there was approximately 75cc of blood loss. No intraop transfusions or complications
== END 2020-10-29 13:00 | disposition skilled nursing facility (03) | DRG 308 ==
LOC: HO.ED 11:46 → HO.EDOVER 15:45 → HO.S3 19:46
PROVIDERS: Orthopaedic Surgery; Admitting Provider Internal Medicine; Emergency Provider Emergency Medicine; PCP Internal Medicine; Visit Provider Internal Medicine
PROC: 0QS704Z Reposition Left Upper Femur with Internal Fixation Device, Open Approach (ICD-10-PCS; principal; 2020-10-26 12:00)
DX: S72.142A Displaced intertrochanteric fracture of left femur, initial encounter for closed fracture (principal); N17.9 Acute kidney failure, unspecified; E11.22 Type 2 diabetes mellitus with diabetic chronic kidney disease; D63.1 Anemia in chronic kidney disease; D62 Acute posthemorrhagic anemia; F03.90 Unspecified dementia, unspecified severity, without behavioral disturbance, psychotic disturbance, mood disturbance, and anxiety; F32.9 Major depressive disorder, single episode, unspecified; W18.30XA Fall on same level, unspecified, initial encounter; Y93.9 Activity, unspecified; Y92.129 Unspecified place in nursing home as the place of occurrence of the external cause; N18.30 Chronic kidney disease, stage 3 unspecified; Y99.9 Unspecified external cause status; Z20.822 Contact with and (suspected) exposure to COVID-19; Z79.4 Long term (current) use of insulin; Z79.82 Long term (current) use of aspirin; Z79.899 Other long term (current) drug therapy
CPT/HCPCS: 36415; 70450; 71045; 72125; 73502; 80048; 80076; 81001; 81003; 82947; 83690; 83735; 84484; 85025; 85027; 86850; 86900; 86901; 86923; 87086; 87088; 87186; 87635; 93005; 97162; 99024; 99285; C1713; C1769; J0690; J0696; J1170; J2270; J2370; J2405; J3010; P9016

== ENCOUNTER → 2020-11-10 12:50 | Outpatient (BNVA) | payer MEDICAID, SELFPAY | PROVIDERS: Visit Provider Physician Assistant | DX: S72.142D Displaced intertrochanteric fracture of left femur, subsequent encounter for closed fracture with routine healing (principal) | CPT/HCPCS: 99212 ==

== ENCOUNTER 2020-12-22 07:22 | Outpatient (REF) | payer MEDICAID, SELFPAY ==
--- NOTE | ~2020-12-22 | XR_ITS ---
EXAMINATION: XR HIP, LEFT CLINICAL INFORMATION: Fracture COMPARISON: Previous x-ray October 2020 TECHNIQUE: Two views of the left hip. FINDINGS: There is an intramedullary adis, compression/lag screw and distal cortical screw in the left proximal femur. Left femoral intertrochanteric fracture is still seen and appears unchanged. Orthopedic hardware is unchanged. 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 There is soft tissue arterial calcification. XR/XR hip LT min 2V IMPRESSION: ORIF of left femoral intertrochanteric fracture. Fracture is still seen.
== END 2020-12-22 07:23 | disposition home or self-care (01) ==
LOC: HO.HOSX 07:22
PROVIDERS: Visit Provider Physician Assistant
DX: S72.142D Displaced intertrochanteric fracture of left femur, subsequent encounter for closed fracture with routine healing (principal)
CPT/HCPCS: 73502; 99212